=== PATIENT | male | born 1970 | race Hispanic/Latino ===

== ENCOUNTER 2021-05-24 22:48 | Emergency (ER) | payer SELFPAY ==
[2021-05-25] MEDS ORDERED: NA CHLORIDE 0.9% 1,000 ML ONE (01:39)
[2021-05-25 01:51] LABS: Absolute Lymphocytes (CBC) 3.4 K/uL (0.7-4.9); Basophils % 0.8 % (0-1.3); Hematocrit 45.6 % (39.6-49.0); Lymphocytes % 28.7 % (15.3-44.8); MPV 7.8 fL (7.6-11.3); RBC Red Blood Cell Count 4.82 M/uL (4.33-5.43)
[2021-05-25] MEDS ORDERED: MORPHINE 4 MG/ML SYR ONE (01:56)
[2021-05-25] MEDS ORDERED: ONDANSETRON 4 MG/2 ML VIAL ONE (01:56)
[2021-05-25 02:06] LABS: BUN Blood Urea Nitrogen 20 mg/dL (7-18); Bicarbonate 29 mmol/L (21-32); Glucose Level 123 mg/dL (74-106); Potassium 3.7 mmol/L (3.5-5.1); Sodium Level 138 mmol/L (136-145)
[2021-05-25 02:07] LABS: C-Reactive Protein < 2.90 mg/L (<3.00)
--- NOTE | 2021-05-25 03:11 | EDPHYS ---
Physician Documentation [facility] Name: Drew Moore JR. Age: 50 yrs Sex: Male : 1970 Arrival Date: 05/24/2021 Time: 23:13 Bed 12 Private MD: ED Physician Sanchez Lopez HPI: 05/25 01:26 This 50 yrs old Male presents to ER via Ambulatory with complaints of LUMP ON pkl HEAD, Blurred Vision, LUMP IS PAINFUL. 01:26 The patient complains of pain to the left occipital scalp. The patient describes the pkl headache as throbbing. Onset: The symptoms/episode began/occurred this morning. Associated signs and symptoms: Pertinent positives: blurred vision. Historical: - Allergies: 05/24 23:30 No Known Allergies; iw - Home Meds: 23:30 None [Active]; iw - PMHx: 23:30 None; iw - PSHx: 23:30 None; iw ROS: 05/25 01:26 ENT: Negative for injury, pain, and discharge. pkl Eyes: Positive for blurry vision. ENT: Negative for acute changes. Neck: Negative for stiffness. Cardiovascular: Negative for chest pain. Respiratory: Negative for cough, shortness of breath. Abdomen/GI: Negative for abdominal pain, nausea, vomiting, and diarrhea. Back: Negative for pain at rest. : Negative for urinary symptoms. MS/extremity: Negative for acute changes. Skin: Negative for rash. Neuro: Positive for headache, of the left occipital scalp. Exam: 01:26 Head/face: Noted is painful knot ( 2 x 1 cm ) left occipital scalp. pkl 01:26 Eyes: Pupils: no acute changes, Extraocular movements: no acute changes, Conjunctiva: normal, Corneas: are normal. 01:26 ENT: Exam is negative for acute changes. 01:26 Neck: Exam negative for nuchal rigidity. 01:26 Chest/axilla: Palpation: is normal, Axilla: are normal. 01:26 Cardiovascular: Rate: normal, Rhythm: regular. 01:26 Respiratory: the patient does not display signs of respiratory distress, Respirations: normal, Breath sounds: are clear throughout. 01:26 Abdomen/GI: Bowel sounds: normal, Palpation: abdomen is soft and non-tender, in all quadrants. 01:26 Back: Exam negative for acute changes. 01:26 : Exam negative for acute changes. 01:26 Musculoskeletal/extremity: Exam is negative for acute changes. 01:26 Skin: Exam negative for rash. 01:26 Neuro: Orientation: is normal, Mentation: is normal, Cranial nerves: grossly normal, Motor: is normal. Vital Signs: 05/24 23:28 BP 167 / 93; Pulse 79; Resp 16; Temp 98.1; Pulse Ox 96% on R/A; Weight 74.84 kg; Height iw 5 ft. 4 in. (162.56 cm); Pain 10; 05/25 01:15 BP 156 / 91; Pulse 86; Resp 16; Pulse Ox 98% on R/A; jb4 02:00 BP 165 / 91; Pulse 64; Resp 16; Pulse Ox 97% on R/A; jb4 05/24 23:28 Body Mass Index 28.32 (74.84 kg, 162.56 cm) iw Visual Acuity: 01:14 Left Eye Visual acuity 20/50, Pupil size 5 mm, Normal, React To Light, Reactive To jb4 Accomodation; Right Eye Visual acuity 20/40, Pupil size 5 mm, Normal, React To Light, Reactive To Accomodation; Both Eyes Visual acuity 20/40; Without Lenses; MDM: 00:34 Patient medically screened. pkl 03:06 Data reviewed: vital signs, nurses notes, lab test result(s), radiologic studies, CT pkl scan. ED course: Patient feeling better. Discussed lab and imaging studies with patient. Advised to follow up with Dr. Dueñas ( Surgeon ) and Dr. Mcdonough ( Ophthalmology ) in 1 to 2 days. Patient understood instruction. 05/25 01:09 Order name: CBC with Diff pkl 05/25 01:09 Order name: Chem 7; Complete Time: 02:14 pkl 05/25 01:09 Order name: Sed Rate; Complete Time: 02:14 pkl 05/25 01:09 Order name: CRP; Complete Time: 02:14 pkl 05/25 01:09 Order name: CT Head Brain wo Cont pkl 05/25 01:09 Order name: CBC with Automated Diff; Complete Time: 02:14 EDMS 05/25 01:09 Order name: Visual Acuity; Complete Time: 01:14 pkl Administered Medications: 01:29 Drug: NS 0.9% 1000 ml Route: IV; Rate: 125 ml/hr; Site: right forearm; jb4 03:30 Follow up: Response: No adverse reaction; IV Status: Order to discontinue infusion; IV jb4 Intake: 200ml 01:37 Drug: Zofran (Ondansetron) 4 mg Route: IVP; Site: right antecubital; jb4 03:46 Follow up: Response: No adverse reaction; Marked relief of symptoms jb4 01:45 Drug: morphine 4 mg Route: IVP; Site: right antecubital; jb4 02:15 Follow up: Response: No adverse reaction; Marked relief of symptoms; Pain is decreased; jb4 RASS: Alert and Calm (0) Disposition Summary: 05/25/21 03:11 Discharge Ordered Location: Home pkl Problem: new pkl Symptoms: are unchanged pkl Condition: Stable pkl Diagnosis - Painful knot left occipital scalp. Visual disturbance pkl Followup: pkl - With: Hilario Dueñas MD - When: 1 - 2 days - Reason: Re-evaluation by your physician Discharge Instructions: - Discharge Summary Sheet pkl Forms: - Medication Reconciliation Form pkl - Thank You Letter pkl - Antibiotic Education pkl - Prescription Opioid Use pkl Prescriptions: - Clindamycin HCl 300 mg Oral Capsule - take 1 capsule by ORAL route every 6 hours for 7 days; 28 capsule; Refills: 0, pkl Product Selection Permitted Signatures: Dispatcher [employer] Sanchez Zhao MD MD pkl Lena Grace RN RN iw Bryson, James, RN RN jb4
--- NOTE | 2021-05-25 03:11 | ER ---
Nurse's Notes [facility] Name: Drew Moore JR. Age: 50 yrs Sex: Male : 1970 Arrival Date: 05/24/2021 Time: 23:13 Bed 12 Private MD: Diagnosis: Painful knot left occipital scalp. Visual disturbance Presentation: 05/24 23:28 Chief complaint: Patient states: noticed a knot on back of neck/scalp this morning and iw is having a lot pain up behind his left eye and down his jaw. Coronavirus screen: At this time, the client does not indicate any symptoms associated with coronavirus-19. Ebola Screen: Patient negative for fever greater than or equal to 101.5 degrees Fahrenheit, and additional compatible Ebola Virus Disease symptoms Patient denies exposure to infectious person. Patient denies travel to an Ebola-affected area in the 21 days before illness onset. No symptoms or risks identified at this time. Initial Sepsis Screen: Does the patient meet any 2 criteria? No. Patient's initial sepsis screen is negative. Does the patient have a suspected source of infection? No. Patient's initial sepsis screen is negative. Risk Assessment: Do you want to hurt yourself or someone else? Patient reports no desire to harm self or others. Onset of symptoms was May 24, 2021. 23:28 Method Of Arrival: Ambulatory iw 23:28 Acuity: RANDELL 3 iw Historical: - Allergies: 23:30 No Known Allergies; iw - Home Meds: 23:30 None [Active]; iw - PMHx: 23:30 None; iw - PSHx: 23:30 None; iw Screenin/05 00:45 Abuse screen: Denies threats or abuse. Nutritional screening: No deficits noted. jb4 Tuberculosis screening: No symptoms or risk factors identified. Fall Risk None identified. Assessment: 00:45 General: Appears in no apparent distress. uncomfortable, Behavior is calm, cooperative, jb4 appropriate for age. Pain: Complains of pain in occipital area Pain does not radiate. Pain currently is 9 out of 10 on a pain scale. Neuro: Level of Consciousness is awake, alert, obeys commands, Oriented to person, place, time, situation. Cardiovascular: Patient's skin is warm and dry. Respiratory: Airway is patent Respiratory effort is even, unlabored, Respiratory pattern is regular, symmetrical. GI: : No signs and/or symptoms were reported regarding the genitourinary system. EENT: No signs and/or symptoms were reported regarding the EENT system. Derm: Skin is intact, Skin is pink, warm \T\ dry. Musculoskeletal: Circulation, motion, and sensation intact. Range of motion: intact in all extremities. 02:00 Reassessment: Patient appears in no apparent distress at this time. Patient and/or jb4 family updated on plan of care and expected duration. Pain level reassessed. Patient is alert, oriented x 3, equal unlabored respirations, skin warm/dry/pink. 03:15 Reassessment: Patient appears in no apparent distress at this time. Patient and/or jb4 family updated on plan of care and expected duration. Pain level reassessed. Patient is alert, oriented x 3, equal unlabored respirations, skin warm/dry/pink. Vital Signs: 05/24 23:28 BP 167 / 93; Pulse 79; Resp 16; Temp 98.1; Pulse Ox 96% on R/A; Weight 74.84 kg; Height iw 5 ft. 4 in. (162.56 cm); Pain 10/10; 05/25 01:15 BP 156 / 91; Pulse 86; Resp 16; Pulse Ox 98% on R/A; jb4 02:00 BP 165 / 91; Pulse 64; Resp 16; Pulse Ox 97% on R/A; jb4 05/24 23:28 Body Mass Index 28.32 (74.84 kg, 162.56 cm) Visual Acuity: 01:14 Left Eye Visual acuity 20/50, Pupil size 5 mm, Normal, React To Light, Reactive To jb4 Accomodation; Right Eye Visual acuity 20/40, Pupil size 5 mm, Normal, React To Light, Reactive To Accomodation; Both Eyes Visual acuity 20/40; Without Lenses; ED Course: 05/24 23:13 Patient arrived in ED. cf2 23:30 Triage completed. iw 23:30 Arm band placed on. iw 05/25 00:33 Sanchez Lopez MD is Attending Physician. pkl 00:45 Patient has correct armband on for positive identification. Placed in gown. Bed in low jb4 position. Call light in reach. Side rails up X 1. Pulse ox on. NIBP on. 01:09 Jefry Hermosillo, RN is Primary Nurse. jb4 01:20 Initial lab(s) drawn, by me, sent to lab. Inserted saline lock: 18 gauge in right jb4 forearm, using aseptic technique. Blood collected. 02:12 CT Head Brain wo Cont In Process Unspecified. EDMS 03:09 Hilario Dueñas MD is Referral Physician. pkl 03:30 No provider procedures requiring assistance completed. IV discontinued, intact, jb4 bleeding controlled, No redness/swelling at site. Pressure dressing applied. Administered Medications: 01:29 Drug: NS 0.9% 1000 ml Route: IV; Rate: 125 ml/hr; Site: right forearm; jb4 03:30 Follow up: Response: No adverse reaction; IV Status: Order to discontinue infusion; IV jb4 Intake: 200ml 01:37 Drug: Zofran (Ondansetron) 4 mg Route: IVP; Site: right antecubital; jb4 03:46 Follow up: Response: No adverse reaction; Marked relief of symptoms jb4 01:45 Drug: morphine 4 mg Route: IVP; Site: right antecubital; jb4 02:15 Follow up: Response: No adverse reaction; Marked relief of symptoms; Pain is decreased; jb4 RASS: Alert and Calm (0) Intake: 03:30 IV: 200ml; Total: 200ml. jb4 Outcome: 03:11 Discharge ordered by . pkl 03:30 Discharged to home ambulatory. jb4 03:30 Condition: stable 03:30 Discharge instructions given to patient, Instructed on discharge instructions, follow up and referral plans. medication usage, Demonstrated understanding of instructions, follow-up care, medications, Prescriptions given X 1. 03:47 Patient left the ED. mw2 Signatures: Dispatcher [employer] EDAR Sanchez Lopez MD MD pkl Lena Grace RN RN Jefry Hermosillo RN RN jb4 Dinora Flaherty mw2 Chon Woodruff2 Corrections: (The following items were deleted from the chart) 01:51 00:20 Inserted saline lock: 18 gauge in right antecubital area, using aseptic jb4 technique. wrist, using aseptic technique. Blood collected. jb4 01:51 00:20 Initial lab(s) drawn, by pr, sent to lab. jb4 jb4
[2021-05-25 03:52] VITALS: TEMP 98.1
[2021-05-25 03:55] VITALS: BP 165/91; O2SAT 97
--- NOTE | 2021-05-25 12:54 | RAD REPORT ---
EXAM DESCRIPTION: CT of the head without contrast CLINICAL HISTORY: Painful knot back of head COMPARISON: None available TECHNIQUE: Axial CT of the head obtained from the skull apex to the skull base without contrast. Thi s exam was performed according to our departmental dose-optimization program, which includes automate d exposure control, adjustment of the mA and/or kV according to patient size and/or use of iterative reconstruction technique. FINDINGS: No acute intracranial hemorrhage identified. No mass, mass effect, shift of the midline, a bnormal extra-axial fluid collection or CT evidence of acute ischemic change identified. The ventricu lar system is unremarkable. No acute abnormalities of the supratentorial white matter, basal gangli a, cerebellum, or brainstem. Mucosal thickening of the paranasal sinuses. Mastoid air cells are well aerated. No skull fracture id entified. Visualized orbits and globes are unremarkable. Contusion in the left posterior scalp soft tissues. IMPRESSION: 1. No acute intracranial abnormality identified. Electronically signed by: Baljit Hardy 05/25/2021 2:29 AM CDT Due to temporary technical issues with the PACS/Fluency reporting system, reports are being signed by the in house radiologist without review as a courtesy to ensure prompt reporting. The interpreting r adiologist is fully responsible for the content of the report.
== END 2021-05-25 03:47 | disposition home or self-care (01) ==
LOC: ER 22:48
DX: R22.0 Localized swelling, mass and lump, head (principal); H53.8 Other visual disturbances
CPT/HCPCS: 36415; 70450; 80048; 85025; 85652; 86140; 96361; 96374; 96375; 99284; J2405; J7030